=== PATIENT | male | born 1995 | race Caucasian/White ===

== ENCOUNTER 2024-03-22 07:01 | Emergency (ER) | payer BC, MEDICAID, SELFPAY ==
[2024-03-22 07:02] VITALS: BP 123/82; PULSE 79; RESP 17; TEMP 36.4; O2SAT 100; BMI 22.2
[2024-03-22 07:23] LABS: Basophils % 0.3 %; Eosinophils # 0.1 10^3/uL (0.0-0.8); Eosinophils % 0.7 %; Hematocrit 50.6 % (37-53); Lymphocytes # 1.2 10^3/uL (0.8-4.8); Lymphocytes % 14.1 %; Mean Corpuscular HGB Conc 35.6 g/dL (30-55); Mean Corpuscular Hemoglobin 30.4 pg (27-33); Mean Corpuscular Volume 85.3 fl (82-101); Mean Platelet Volume 8.2 fL (7.4-10.4); Monocytes # 0.4 10^3/uL (0.2-0.9); Monocytes % 4.6 %; Neutrophils # 6.95 10^3/uL (1.8-7.7); Nucleated Red Blood Cells % 0 %; Platelet Count 308 10^3/cmm (157-399); Red Blood Count 5.93 10^6/uL (3.85-5.65); Red Cell Distribution Width 11.9 % (12.1-15.1)
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
[2024-03-22 08:03] LABS: Alanine Aminotransferase 11 U/L (0-41); Albumin Level 4.8 g/dL (3.5-5.2); Alkaline Phosphatase 100 U/L (40-130); Anion Gap 16.3 (5-19); Aspartate Amino Transferase 19 U/L (0-40); Blood Urea Nitrogen 20 mg/dL (6-20); Calcium 9.6 mg/dL (8.5-10.5); Carbon Dioxide 25 mmol/L (22-29); Chloride 99 mmol/L (98-107); Globulin 2.7 g/dL (1.3-4.6); Glomerular Filtration Rate 88.3 mL/min (90-130); Glucose 103 mg/dL (65-115); Osmolality Calculated 285 mOsm/kg (285-295); Potassium 4.3 mmol/L (3.5-5.1); Sodium 136 mmol/L (136-145); Total Bilirubin 0.8 mg/dL (0.15-1.2); Total Protein 7.5 g/dL (6.6-8.7)
[2024-03-22 08:07] LABS: Acetaminophen < 5.0 ug/mL (10-30); Alcohol Level < 10 mg/dL (0-10); Salicylate < 0.3 mg/dL (3-10)
[2024-03-22 08:22] VITALS: BP 146/93; PULSE 76; RESP 18; O2SAT 97
== END 2024-03-22 08:25 | disposition home or self-care (01) ==
PROVIDERS: Emergency Provider Family Medicine
DX: S80.212A Abrasion, left knee, initial encounter (principal); S50.311A Abrasion of right elbow, initial encounter; W19.XXXA Unspecified fall, initial encounter; Y93.02 Activity, running; Z53.29 Procedure and treatment not carried out because of patient's decision for other reasons
CPT/HCPCS: 80053; 80307; 85025; 99283

== ENCOUNTER 2024-03-29 12:12 | Inpatient (IN) | payer BC, MEDICAID, SELFPAY ==
[2024-03-29 12:13] VITALS: BP 148/86; PULSE 101; RESP 18; TEMP 36.4; O2SAT 96; BMI 21.5
--- NOTE | 2024-03-29 12:22 | PC.NURSE ---
Dr. Zaidi not notified of SI, Dr. Aaron notified as he is the MD that signed up for pt.
--- NOTE | 2024-03-29 12:38 | ECG_ITS ---
[facility] 2024-[facility]29 Pat Name: Brandon Marshall Department: Room: Gender: Male Clean Out Driller: : 1995 Requested By: Negrito Aaron Order Number: [id number] Nino MD: Aimee Tavera M.D. Measurements Intervals [place] Rate: 68 P: 62 WA: 157 QRS: 68 QRSD: 94 T: 51 QT: 361 QTc: 386 Interpretive Statements SINUS RHYTHM WITH SINUS ARRHYTHMIA No previous ECG available for comparison Electronically Signed On 03-29-2024 13:38:56 CDT by Aimee Tavera M.D. [id number]
[2024-03-29 13:03] LABS: Amphetamines Screen Urine Negative (Negative); Barbiturates Screen Urine Negative (Negative); Benzodiazepines Screen Urine Negative (Negative); Cocaine Screen Urine Negative (Negative); Opiate Screen Urine Negative (Negative); PCP Screen Urine Negative (Negative); THC Screen Urine Positive (Negative)
[2024-03-29 13:10] LABS: Basophils % 0.5 %; Eosinophils # 0.1 10^3/uL (0.0-0.8); Eosinophils % 1.1 %; Lymphocytes # 1.1 10^3/uL (0.8-4.8); Lymphocytes % 18.7 %; Mean Corpuscular HGB Conc 34.3 g/dL (30-55); Mean Corpuscular Volume 87.5 fl (82-101); Mean Platelet Volume 8.3 fL (7.4-10.4); Monocytes # 0.3 10^3/uL (0.2-0.9); Monocytes % 4.8 %; Neutrophils # 4.23 10^3/uL (1.8-7.7); Neutrophils % 74.4 %; Nucleated Red Blood Cells % 0 %; Platelet Count 326 10^3/cmm (157-399); Red Cell Distribution Width 11.9 % (12.1-15.1); White Blood Count 5.68 10^3/uL (3.29-11.43)
[2024-03-29 13:37] LABS: Alanine Aminotransferase 13 U/L (0-41); Albumin Level 4.6 g/dL (3.5-5.2); Alkaline Phosphatase 96 U/L (40-130); Anion Gap 16.6 (5-19); Aspartate Amino Transferase 18 U/L (0-40); Blood Urea Nitrogen 25 mg/dL (6-20); Calcium 9.4 mg/dL (8.5-10.5); Carbon Dioxide 26 mmol/L (22-29); Chloride 102 mmol/L (98-107); Creatinine Clr Calc Pharmacy 109.4824; Globulin 2.6 g/dL (1.3-4.6); Glomerular Filtration Rate 88.3 mL/min (90-130); Glucose 92 mg/dL (65-115); Osmolality Calculated 294 mOsm/kg (285-295); Potassium 4.6 mmol/L (3.5-5.1); Sodium 140 mmol/L (136-145); Thyroid Stimulating Hormone 0.98 uIU/mL (0.27-4.20); Total Bilirubin 0.4 mg/dL (0.15-1.2); Total Protein 7.2 g/dL (6.6-8.7)
[2024-03-29 13:39] LABS: Acetaminophen < 5.0 ug/mL (10-30); Alcohol Level < 10 mg/dL (0-10); Salicylate < 0.3 mg/dL (3-10)
--- NOTE | 2024-03-29 15:44 | ED.C_ITS ---
HPI - Psych 2 General: Chief Complaint: Psychiatric Symptoms Stated Complaint: SI Time Seen by Provider: 03/29/24 12:15 History of Present Illness: This patient is a 28-year-old white male who is brought in by police. Police state that they picked him up as he was wandering around on the streets. Patient told security police officer that he was in a program house last night and was kicked out. Patient made suicidal statements to the security police officer. Patient tells me that he has not been doing well mentally for a long time now. He has had suicidal thoughts recently. States he has a history of bipolar disorder and anxiety but will not take the medications. 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 He does have a history of drug abuse but states he has not used drugs for a while. Associated symptoms: Reports depression and suicidal ideation Related Data Allergies Allergy/AdvReac Type Severity Reaction Status Date / Time No Known Allergies Allergy Verified 03/29/24 12:20 Review of Systems 2 General: Reports: 10 or more systems reviewed and unremarkable except in HPI and below Psych: Reports: depression, hopelessness and suicidal ideation Physical Exam 2 Const: COMMON NORMALS: no acute distress, patient oriented x3 and no limitations GENERAL APPEARANCE: cooperative and comfortable HENMT: COMMON NORMALS: normocephalic, atraumatic, Normal nasal mucous membranes and turbinates present, moist oral mucous membranes and oropharynx normal HEAD & SCALP: normal to inspection, normocephalic and atraumatic F MEME & SINUS: normal facial exam NOSE: Normal nasal mucous membranes and turbinates present Eye: COMMON NORMALS: Equal, round and reactive pupils present, EOMs intact bilaterally and conjunctivae normal GENERAL EYE: appearance normal, both eyes and all related structures CONJUNCTIVA: Yes conjunctivae normal PUPIL: Yes Equal, round and reactive pupils present Neck/C-Spine: COMMON NORMALS: supple and no JVD Chest: COMMONS NORMALS: normal inspection of the chest Resp: COMMON NORMALS: normal respiratory effort and clear to auscultation bilaterally AUSCULTATION: clear to auscultation bilaterally Cardio: COMMON NORMALS: no JVD, regular rate, regular rhythm, No gallops present (Cardio), No murmurs present (Cardio) and No rub (Cardio) RATE: r egular rate RHYTHM: regular rhythm GI: COMMON NORMALS: Normal to inspection, nondistended, normoactive bowel sounds present, Soft to palpation and non-tender AUSCULTATION: Yes normoactive bowel sounds PALPATION: Yes Soft to palpation : COMMON NORMALS: Yes no CVA tenderness BLADDER/KIDNEY EXAM: Yes no CVA tenderness Back/Pelvis: COMMON NORMALS: no CVA tenderness and thoracic and lumbar spine normal to inspection Extremity: COMMON NORMALS: normal to inspection Neuro: COMMON NORMALS: patient oriented x3 and CN's II-XII intact bilaterally Psych: COMMON NORMALS: mental status grossly normal, Normal thought process present, cooperative and speech normal ATTITUDE: Yes calm and Yes engaged ACTIVITY/MOTOR BEHAVIOR: Yes appropriate eye contact SPEECH: Yes normal speech MOOD & AFFECT: Yes sad THOUGHT PROCESS: Normal thought process present THOUGHT CONTENT: Yes Suicidality present ATTENTION/CONCENTRATION: Yes attention grossly intact MEMORY/COGNITION: Yes memory grossly intact I NSIGHT: Fair insight present (Psych) JUDGEMENT: Limited judgement present (Psych) Skin: COMMON NORMALS: no rashes or lesions noted, turgor normal and no jaundice GENERAL SKIN EXAM: no rashes or lesions noted and turgor normal Course 2 Vital Signs: Vital signs: Vital Signs Temperature 97.5 F L 03/29/24 12:13 Pulse Rate 101 H 03/29/24 12:13 Respiratory Rate 18 03/29/24 12:13 Blood Pressure 148/86 03/29/24 12:13 Pulse Oximetry 96 03/29/24 12:13 Oxygen Delivery Me thod Room Air 03/29/24 12:13 MDM - Psych Medical Decision Making EKG revealed sinus rhythm with no ST segment abnormalities. Laboratory workup was normal. Urine drug screen was positive for THC. Patient initially told me that he wanted help and wanted to be admitted to the psychiatric unit and then changed his mind later during the ER stay. He was wanting to go to another program house that his friend was going to try to get him into. I contacted Dr. Ayala, psychiatrist and discussed this case with him. He stated if the patient does have a safe place to go when he has a ride he could go otherwise he should be admitted to the psychiatric unit. We did allow the patient to make some phone calls and was unable to secure a place to stay and did not have a ride. I recommended he stay but he became angry. I do think this patient is at risk for harming himself. We did 96 him. Patient will be transferred to the psychiatric unit shortly. He is stable. Lab Data 03/29/24 13:05 03/29/24 13:05 Laboratory Results WBC 5.68 10^3/uL (3.29-11.43) 03/29/24 13:05 RBC 5.60 10^6/uL (3.85-5.65) 03/29/24 13:05 Hgb 16.80 g/dL (11.27-16.99) 03/29/24 13:05 Hct 49.0 % (37-53) 03/29/24 13:05 MCV 87.5 fl (82-101) 03/29/24 13:05 MCH 30.0 pg (27-33) 03/29/24 13:05 MCHC 34.3 g/dL (30-55) 03/29/24 13:05 RDW 11.9 % (12.1-15.1) L 03/29/24 13:05 Plt Count 326 10^3/cmm (157-399) 03/29/24 13:05 MPV 8.3 fL (7.4-10.4) 03/29/24 13:05 Neut % (Auto) 74.4 % 03/29/24 13:05 Lymph % (Auto) 18.7 % 03/29/24 13:05 [place] % (Auto) 4.8 % 03/29/24 13:05 Eos % (Auto) 1.1 % 03/29/24 13:05 Baso % (Auto) 0.5 % 03/29/24 13:05 Neut # (Auto) 4.23 10^3/uL (1.8-7.7) 03/29/24 13:05 Lymph # (Auto) 1.1 10^3/uL (0.8-4.8) 03/29/24 13:05 [place] # (Auto) 0.3 10^3/uL (0.2-0.9) 03/29/24 13:05 Eos # (Auto) 0.1 10^3/uL (0.0-0.8) 03/29/24 13:05 Baso # (Auto) 0.0 10^3/uL (0.0-0.1) 03/29/24 13:05 Nucleated RBC % (auto) 0 % 03/29/24 13:05 Nucleated RBCs # 0.0 /100WBC 03/29/24 13:05 Sodium 140 mmol/L (136-145) 03/29/24 13:05 Potassium 4.6 mmol/L (3.5-5.1) 03/29/24 13:05 Chloride 102 mmol/L (98-107) 03/29/24 13:05 Carbon Dioxide 26 mmol/L (22-29) 03/29/24 13:05 Anion Gap 16.6 (5-19) 03/29/24 13:05 BUN 25 mg/dL (6-20) H 03/29/24 13:05 Creatinine 1.0 mg/dL (0.7-1.2) 03/29/24 13:05 GFR Calculation 88.3 mL/min (90-130) L 03/29/24 13:05 Glucose 92 mg/dL (65-115) 03/29/24 13:05 Calculated Osmolality 294 mOsm/kg (285-295) 03/29/24 13:05 Calcium 9.4 mg/dL (8.5-10.5) 03/29/24 13:05 Total Bilirubin 0.4 mg/dL (0.15-1.2) 03/29/24 13:05 AST 18 U/L (0-40) 03/29/24 13:05 ALT 13 U/L (0-41) 03/29/24 13:05 Alkaline Phosphatase 96 U/L (40-130) 03/29/24 13:05 Total Protein 7.2 g/dL (6.6-8.7) 03/29/24 13:05 Albumin 4.6 g/dL (3.5-5.2) 03/29/24 13:05 Globulin 2.6 g/dL (1.3-4.6) 03/29/24 13:05 TSH 0.98 uIU/mL (0.27-4.20) 03/29/24 13:05 Salicylates < 0.3 mg/dL (3-10) L 03/29/24 13:05 Urine Opiates Screen Negative ng/mL (Negative) 03/29/24 12:32 Acetaminophen < 5.0 ug/mL (10-30) L 03/29/24 13:05 Ur Barbiturates Screen Negative ng/mL (Negative) 03/29/24 12:32 Ur Phencyclidine Scrn Negative ng/mL (Negative) 03/29/24 12:32 Ur Amphetamines Screen Negative ng/mL (Negative) 03/29/24 12:32 U Benzodiazepines Scrn Negative ng/mL (Negative) 03/29/24 12:32 Urine Cocaine Screen Negative ng/mL (Negative) 03/29/24 12:32 U Marijuana (THC) Screen Positive ng/mL (Negative) H 03/29/24 12:32 Ethyl Alcohol < 10 mg/dL (0-10) 03/29/24 13:05 No radiology studies performed this visit Discharge Plan Discharge Condition: Stable Coding Level of Care Code ED Mold Filling Operator for Jaycob Mccollum
[2024-03-29 16:29] VITALS: BP 135/82; PULSE 75; RESP 16; TEMP 36.7; O2SAT 100
[2024-03-29 16:34] VITALS: BP 128/75; PULSE 86; RESP 16; O2SAT 100
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
[2024-03-29 22:00] VITALS: BP 116/75; PULSE 70; RESP 18; TEMP 36.7; O2SAT 98
[2024-03-30 06:00] VITALS: BP 117/81; PULSE 88; RESP 18; TEMP 36.6; O2SAT 100
[2024-03-30 14:00] VITALS: BP 149/91; PULSE 79; RESP 18; TEMP 36.8; O2SAT 98
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
[2024-03-30 22:00] VITALS: BP 109/70; PULSE 71; RESP 18; TEMP 36.6; O2SAT 97
[2024-03-31 05:59] VITALS: BP 120/60; PULSE 64; RESP 17; TEMP 36.3; O2SAT 97
--- NOTE | 2024-03-31 08:40 | PC.NURSE ---
Patient irritated this morning when his roommate began yelling profanities at the nursing staff. He began yelling at his roommate that the staff was just trying to do their job. Other than that, the patient was calm and cooperative with this RN this morning. He denies avh and si/hi. He states his depression has gotten better and he feels like he was depressed because of the situation he was in before he was brought here. He says he was riding in a car with some people he thought were his friends and they would not turn off a song that was mentioning whiskey in it and he became agitated. Patient acknowledges he was impulsive and made a mistake when he began yelling at them. Patient very tearful when talking about trying to find people who understood him trying to get better and his relationship with God. He stated he wanted to grow closer to God and help others.
[2024-03-31 14:00] VITALS: BP 125/75; PULSE 82; TEMP 36.3
--- NOTE | 2024-03-31 14:45 | P.NPUPN_ITS ---
Subjective NPU 2 Subjective: Patient presented today reporting that he wanted to get to a sober living facility sooner rather than later. He is working with the social work team on available options. He continues to want to avoid medication. He reported even being willing to return to the previous facility. Mental Status Exam 2 MSE Comments: This is a well-nourished well-developed white male in hospital scrubs with limited grooming and eye contact. No abnormal movements except for psychomotor retardation. He was cooperative with exam in mild to moderate distress. Speech was decreased rate and volume with some notable pauses Mood described as paranoid. His affect was mood congruent. Thought process was linear. Thought content: Patient denied suicidal or homicidal ideation, But had reported on admission. There were no delusions reported or noted, he denied auditory or visual hallucinations but seem like he might be attending to internal stimuli at times.. Attention and concentration were limited and memory appeared somewhat reliable but none were formally tested. He is alert and oriented to person, place and situation. Insight, judgment and impulse control all impaired. Vitals/I&O/Wt Last Vital Signs Temp 97.4 F L 03/31/24 14:00 Pulse 82 03/31/24 14:00 Resp 17 03/31/24 05:59 BP 125/75 03/31/24 14:00 Pulse Ox 97 03/31/24 05:59 O2 Del Method Room Air 03/31/24 05:59 Weight last 48 hrs Weight 68.606 kg Data NPU 03/29/24 13:05 03/29/24 13:05 A&P Assessment and plan (1) Major depressive disorder, recurrent: (2) Cannabis use disorder, severe, dependence: (3) Unspecified psychosis: Plan This is a 28-year-old white male with a long history of addiction and some mental health challenges with recent discharge from a sober living facility with history of legal challenges and presenting homeless and unclear of what his next decision will be to keep himself safe. Sodium 1.? Will consider possible medication options but at this point he is hoping to stay off of medication 2.? Continue every 15 minute checks for safety. 3.? Encourage individual, group and milieu therapies. 4. Encourage sober living treatment after discharge at the highest level care to which he is willing to commit. 5. Obtain collateral information. 6. Work with social work team on possible long-term sober living facilities tomorrow. Involuntary Hold Information 2 96 Hour Hold: 96 Hour Involuntary Admission: Yes Other Hold: Hold End Date: 04/04/24 Attestations NPU 2 Medical Necessity Statement*: Inpatient hospitalization is medically necessary and the clinically appropriate intervention at this time. We will monitor medications/initiate medications and make changes as indicated. Likely length of stay 2-4 days. Coding Level of Care Code Acute Code for Chg Fwd Diagnoses Major depressive disorder, recurrent F33.9 Cannabis use disorder, severe, dependence F12.20 Unspecified psychosis F29
[2024-03-31] MEDS: hydrocortisone 1% cream 28 gm 1 APPLIC TOPICAL (15:37)
[2024-03-31 19:39] VITALS: BP 118/70; PULSE 72; RESP 18; TEMP 36.6; O2SAT 98
[2024-04-01 06:00] VITALS: BP 125/79; PULSE 98; RESP 18; TEMP 36.6; O2SAT 98
[2024-04-01 14:00] VITALS: BP 129/90; PULSE 75; RESP 16; TEMP 36.8; O2SAT 98
--- NOTE | 2024-04-01 16:55 | P.NPUPN_ITS ---
Subjective NPU 2 Subjective: Patient presented today reporting that he is doing fine. He was working with the social work team on a new sober living opportunity. They reportedly have identified a program that will accept him. We discussed the risks, benefits and alternatives of likely discharging tomorrow and he understood and agreed to proceed as is documented in this note. Mental Status Exam 2 MSE Comments: This is a well-nourished well-developed white male in hospital scrubs with limited grooming and eye contact. No abnormal movements except for psychomotor retardation. He was cooperative with exam in mild to moderate distress. Speech was decreased rate and volume with some notable pauses Mood described as paranoid. His affect was mood congruent. Thought process was linear. Thought content: Patient denied suicidal or homicidal ideation, But had reported on admission. There were no delusions reported or noted, he denied auditory or visual hallucinations but seem like he might be attending to internal stimuli at times.. Attention and concentration were limited and memory appeared somewhat reliable but none were formally tested. He is alert and oriented to person, place and situation. Insight, judgment and impulse control all impaired. Vitals/I&O/Wt Last Vital Signs Temp 98.2 F 04/01/24 14:00 Pulse 75 04/01/24 14:00 Resp 16 04/01/24 14:00 BP 129/90 04/01/24 14:00 Pulse Ox 98 04/01/24 14:00 O2 Del Method Room Air 04/01/24 14:00 Data NPU 03/29/24 13:05 03/29/24 13:05 A&P Assessment and plan (1) Major depressive disorder, recurrent: (2) Cannabis use disorder, severe, dependence: (3) Unspecified psychosis: Plan This is a 28-year-old white male with a long history of addiction and some mental health challenges with recent discharge from a sober living facility with history of legal challenges and presenting homeless and unclear of what his next decision will be to keep himself safe. Sodium 1.? Will consider possible medication options but at this point he is hoping to stay off of medication 2.? Continue every 15 minute checks for safety. 3.? Encourage individual, group and milieu therapies. 4. Encourage sober living treatment after discharge at the highest level care to which he is willing to commit. 5. Obtain collateral information. 6. Work with social work team on possible long-term sober living facilities tomorrow. He was excepted at a program with plan for discharge tomorrow. Involuntary Hold Information 2 96 Hour Hold: 96 Hour Involuntary Admission: Yes Other Hold: Hold End Date: 04/04/24 Attestations NPU 2 Medical Necessity Statement*: Inpatient hospitalization is medically necessary and the clinically appropriate intervention at this time. We will monitor medications/initiate medications and make changes as indicated. Likely length of stay 1-3 days. Coding Level of Care Code Acute Code for Chg Fwd Diagnoses Major depressive disorder, recurrent F33.9 Cannabis use disorder, severe, dependence F12.20 Unspecified psychosis F29
[2024-04-01 20:24] VITALS: BP 116/76; PULSE 65; RESP 18; TEMP 36.4; O2SAT 99
[2024-04-02 06:00] VITALS: BP 137/77; PULSE 60; RESP 18; O2SAT 98
[2024-04-02 12:56] VITALS: BP 150/88; PULSE 75; RESP 16; TEMP 36.8; O2SAT 98
[2024-04-02 13:02] VITALS: BP 150/88; PULSE 75; RESP 16; TEMP 36.8; O2SAT 98
== END 2024-04-02 13:19 | disposition home or self-care (01) | DRG 885 ==
LOC: ER 15:48 → NP 16:12
PROVIDERS: Admitting Provider Psychiatry & Neurology Psychiatry; Emergency Provider Emergency Medicine; Visit Provider Psychiatry & Neurology Psychiatry
DX: F33.9 Major depressive disorder, recurrent, unspecified (principal); Z59.00 Homelessness unspecified; R45.851 Suicidal ideations; F12.20 Cannabis dependence, uncomplicated; F29 Unspecified psychosis not due to a substance or known physiological condition
CPT/HCPCS: 80053; 80306; 80307; 84443; 85025; 93005; 97150; 97165; 99285